=== PATIENT | male | born 1990 | race Caucasian/White ===

== ENCOUNTER 2024-10-20 03:14 | Emergency (ER) | payer SELFPAY ==
[2024-10-20 03:16] VITALS: BP 170/120
[2024-10-20 03:58] VITALS: BMI 27.1
[2024-10-20 04:07] VITALS: BP 159/99
[2024-10-20 04:15] LABS: % Basophils 0.4 % (0-2); % Eosinophils 1.7 % (0-6); % Immature Granulocytes 0.3 % (0-0.5); % Lymphocytes 31.5 % (20.5-51.1); % Monocytes 7.6 % (1.7-9.3); % Neutrophils 58.5 % (42.2-75.2); Absolute Eosinophils 0.1 10^3/uL (0-0.7); Absolute Lymphocytes 2.4 10^3/uL (1.2-3.4); Absolute Monocytes 0.6 10^3/uL (0.1-0.6); Absolute Neutrophils 4.4 10^3/uL (1.4-6.5); Hematocrit 44.1 % (39.0-52.0); Hemoglobin 15.5 g/dL (13.0-18.0); Mean Corp Hgb Conc. 35.1 g/dL (33.0-37.0); Mean Corpuscular Hgb 30.1 pg (27.0-31.0); Mean Corpuscular Volume 85.6 fL (80.0-94.0); Mean Platelet Volume 8.4 fL (7.4-10.4); Nucleated Red Blood Cells % 0 % (-); Platelet Count 275 10^3/uL (130-400); Red Blood Cell Count 5.15 10^6/uL (4.70-6.10); White Blood Cell Count 7.5 10^3/uL (4.8-10.8)
[2024-10-20 04:39] LABS: ALT (SGPT) 25 U/L (0-50); AST (SGOT) 33 U/L (17-59); Albumin 4.6 g/dl (3.5-5.0); Alkaline Phosphatase 104 U/L (38-126); Blood Urea Nitrogen 13 mg/dl (9-20); Calcium 9.4 mg/dl (8.4-10.2); Carbon Dioxide 24 mmol/L (22-30); Chloride 104 mmol/L (98-107); Estimated Creatinine Clearance > 125 ml/min; Glucose 118 mg/dl (70-99); Potassium 3.4 mmol/L (3.5-5.1); Sodium 138 mmol/L (135-145); Total Bilirubin 0.6 mg/dl (0.2-1.3); Total Protein 7.3 g/dl (6.3-8.2); eGFR > 60.00
[2024-10-20 05:00] VITALS: BP 141/95
--- NOTE | 2024-10-20 06:15 | ED.GENMED ---
History of Present Illness
General
Chief Complaint: Substance Abuse
Time Seen by Provider: 10/20/24 04:01
History of Present Illness
History of Present Illness:
34-year-old male taking meth presents to the emergency department wanting placement for drug use. He states that he got some bad news today and relapsed into using meth. Denies any medical complaints. Patient denies suicidal or homicidal
ideation, intent, or plan.
Past History
Past History
ED Past Medical History: None
ED Past Surgical History: None
Social History
Tobacco: Smoker
Alcohol: Occasional
Drug: None
Personal: Single
Living: with family
Employment: Not employed
Family History
Family History: Other (Noncontributory)
Phy Exam
Physical Exam
Physical Exam:
Physical Exam
Vital signs and allergy list reviewed and agreed with.
GENERAL: Alert , in minimal to no apparent distress
EYE: pupils equal, EOMI, anicteric
NECK: Supple, no significant adenopathy. No masses. Trachea midline
ENT: Oropharynx is clear, mmm.
CARDIAC: Regular rate and rhythm . No M/R/G
LUNGS: Clear breath sounds bilaterally, no acute respiratory distress, no wheezes/rales/rhonchi
ABDOMEN: Soft, without focal tenderness, no r/g, no cvat. Normal BSx4q
NEUROLOGICAL: Alert and oriented, no focal neuro deficits
SKIN: Warm and dry, skin intact.
MUSCULOSKELETAL: No edema, well perfused. Moves all 4 extremities
PSYCH: Normal and appropriate interaction.
Course
Orders/Labs/Results
Orders:
Orders
10/20/24 04:05
CBC/With Diff [Complete Blood Count/With Diff] Urgent
Comprehensive Metabolic Panel Urgent
Glycohemoglobin (HgbA1c) Urgent
10/20/24 04:17
Crisis Consult Urgent
Reason for Consult: passive SI
Abnormal Lab Results
10/20/24
04:05
Potassium 3.4 L mmol/L
(3.5-5.1)
Glucose 118 H mg/dl
(70-99)
10/20/24 04:05
10/20/24 04:05
Vital Signs
Initial and Last Documented VS:
Initial Vital Signs
Temp Pulse Resp BP Pulse Ox
98.9 F 120 20 170/120 100
10/20/24 03:16 10/20/24 03:16 10/20/24 03:16 10/20/24 03:16 10/20/24 03:16
Last Documented Vital Signs
Temp Pulse Resp BP Pulse Ox
98.9 F 103 20 150/110 98
10/20/24 03:16 10/20/24 06:00 10/20/24 06:00 10/20/24 08:00 10/20/24 08:49
*Critical Care Note
Total Time (30-74mins, 75-104mins- exclusive of procedures): Not Applicable
Update Note
Update Note:
10/20/2024 0615 AM: Patient was cleared by crisis. Patient denies suicidal homicidal ideation, intent, or plan. Currently awaiting the [facility] clinic
ED Attending Note
-
Portions of this chart may have been created with voice recognition software.� Occasional wrong word or��sound alike� substitutions may have occurred due to the inherent limitations of voice recognition software.
Discharge Plan
Departure
Patient Disposition: Acute Rehab Facility
Date of Disposition: 10/20/24
Time of Disposition: 11:28
Discharge Problem:
Active substance abuse
Prescriptions:
No Action
No Current Medications
0
Referrals:
NONE,* [Family Provider] -
Interventions
Interventions:
*Risk Screen - Suicide Last Done: 10/20/24 03:16
*General Assessment Last Done: 10/20/24 03:56
*Neglect/Abuse Screening Last Done: 10/20/24 03:16
ED- Fall Risk Assessment Last Done: 10/20/24 03:56
*ED COVID-19 Vaccine History Last Done: 10/20/24 03:56
*Nursing Disposition Last Done: 10/20/24 13:34
ED-Psychological Assessment Last Done: 10/20/24 04:22
Discharge Date and Time
Discharge Date/Time: 10/20/24 13:34
Print Language: IRISH
[2024-10-20 07:00] VITALS: BP 142/101
[2024-10-20 08:00] VITALS: BP 150/110
[2024-10-21 08:39] LABS: Glycohemoglobin (HgbA1c) 5.1 % (4.0-5.6)
== END 2024-10-20 13:34 ==
LOC: EMR 03:14
PROVIDERS: EMERGENCY PHYSICIAN Student in an Organized Health Care Education/Training Program
DX: F19.10 Other psychoactive substance abuse, uncomplicated (principal); F17.200 Nicotine dependence, unspecified, uncomplicated
CPT/HCPCS: 99285; 80053; 83036; 85025